=== PATIENT | male | born 1985 | race Two or more races ===

== ENCOUNTER 2024-03-21 16:04 | Emergency (ER) | payer OTHER ==
[~2024-03-21] VITALS: Ht 165.1 cm; Wt 73.7 kg
[2024-03-21 18:54] VITALS: BP 135/93; TEMP 97.9
[2024-03-21] MEDS: FLUORESCEIN SOD OPTH TEST STRIP RIGHTEYE ONE (18:56)
[2024-03-21 18:57] VITALS: PULSE 84; RESP 16; O2SAT 100
[2024-03-21] MEDS ORDERED: CIPR0.3S67 OP (20:31)
[2024-03-21] MEDS ORDERED: HYDR-4902 PO (21:21)
[2024-03-21] MEDS ORDERED: IBUP-1455 PO (21:21)
[2024-03-21] MEDS: HYDROcodone-ACET 5/325MG TAB PO ONE (21:39)
== END 2024-03-21 21:50 | disposition home or self-care (01) ==
LOC: ER 16:12
DX: T15.01XA Foreign body in cornea, right eye, initial encounter (principal); W44.8XXA Other foreign body entering into or through a natural orifice, initial encounter; Y93.89 Activity, other specified; Y92.89 Other specified places as the place of occurrence of the external cause; Y99.8 Other external cause status
CPT/HCPCS: 65220